=== PATIENT | female | born 1980 | race Caucasian/White ===

== ENCOUNTER 2017-09-20 12:02 | Day surgery (SDC) | payer BC ==
--- NOTE | 2017-09-20 11:22 | GHP ---
[f rep st] PREOP HISTORY AND PHYSICAL DATE OF ADMISSION: 09/20/2017 HISTORY OF PRESENT ILLNESS: The patient is a 37-year-old G1, P0, who was found on ultrasound on 08/23 8 to have a missed AB at 7 weeks 1 day with no cardiac activity. By sure last menstrual period the was to be 9+ weeks. The patient was counseled as to the 2-week lag in growth with no cardiac activity and that the patient had a missed AB. The patient confirmed those ultrasound findings again on 09/20 with another ultrasound showing a missed AB with no cardiac activity. The gestational sac is enlarged with debris. The patient has not had any bleeding or pain. She stil l has some breast tenderness and has mild nausea. The patient now wants to proceed with definitive m anagement with a D and C. the patient is counseled as to risks of the D and C as far as trauma to th e uterus or scarring to the endometrial lining. She is advised that these risks are low, but could c ause problems with subsequent pregnancies. The patient has an impending trip in a week and does not want to await a spontaneous AB. Risks and benefits of the surgery were discussed and the consent for m will be signed preoperatively. PAST MEDICAL HISTORY: Negative. PAST SURGICAL HISTORY: Odontectomy as a teenager. ALLERGIES: No known drug allergies. CURRENT MEDICATIONS: vitamins. SOCIAL HISTORY: The patient is a nonsmoker. No alcohol or drug use. No edible marijuana use. 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 No history of STDs. She had a histo ry of OCP use until approximately 2 years ago. Upon discontinuation of her pill, she did not have me nstrual cycles for approximately a year. When they resumed they were a regular 28-day pattern with n ormal flow. PHYSICAL EXAM: GENERAL: The patient is a well-developed and well-nourished white female in no physi xi distress. VITAL SIGNS: Normal and the patient is afebrile. See nursing documentation for full details. LUNGS: Clear to auscultation bilaterally. CARDIOVASCULAR: Regular rate and rhythm. ABDO MEN: Soft and nontender. PELVIC: Not performed. IMAGING: Current ultrasound shows the above-noted findings as well as a right ovarian corpus luteum cyst. ASSESSMENT: Missed at 9 weeks 4 days, measuring 7 weeks 1 day. No cardiac activity. PLAN: We will proceed with a D and C today. The patient will get preoperative antibiotics and have on sequential compression devices for DVT prevention. The patient will have a CBC drawn and also con firm her blood type and antibody screen. The patient recalls being A-negative as well as her who was previously checked and is A-negative as well. The patient was given the option for Anora ch romosome testing, but does not feel she will want to do that. This will be confirmed before the proc jasson. /[id number]/MODL
[2017-09-20] MEDS ORDERED: LR 1,000 ML IV ONE (12:11)
[2017-09-20] MEDS ORDERED: DOXYCYCLINE HYCLATE 100 MG CAP/TAB PO ONE (12:11)
[2017-09-20 12:54] LABS: PLATELET COUNT 293 10^3/uL (150-400)
[2017-09-20] MEDS ORDERED: PROPOFOL/EMULSION 500 MG/50 ML BOTTLE IV ONE (13:04)
[2017-09-20] MEDS ORDERED: fentaNYL 100 MCG/2 ML INJ ONE (13:05)
[2017-09-20] MEDS ORDERED: DEXAMETHASONE 4 MG/ML VIAL ONE ×2 (13:54)
[2017-09-20] MEDS ORDERED: LIDOCAINE 2% 5 ML SDV ONE (13:54)
[2017-09-20] MEDS ORDERED: KETOROLAC 30 MG/1 ML SDV ONE (13:54)
[2017-09-20] MEDS ORDERED: ONDANSETRON 4 MG/2 ML VIAL ONE (13:54)
[2017-09-20] MEDS ORDERED: epHEDrine SULFATE 10 MG/ML SYR IVP PRN (14:39)
[2017-09-20] MEDS ORDERED: HYDROCODONE/APAP 5/325 TAB PO PRN (14:39)
[2017-09-20] MEDS ORDERED: ONDANSETRON 4 MG/2 ML VIAL IVP PRN (14:39)
[2017-09-20] MEDS ORDERED: fentaNYL 100 MCG/2 ML INJ IVP PRN (14:39)
[2017-09-20] MEDS ORDERED: NALOXONE HCL 0.4 MG/ML INJ IVP PRN (14:39)
--- NOTE | 2017-09-20 14:43 | POSTANESTH ---
Post Anesthetic Evaluation Cardiovascular Status: Normal, Stable, Similar to Pre-Op Cond Respiratory Status: Normal, Stable, Similar to Pre-op Cond. Level of Consciousness/Mental Status: Can Participate in Eval, Alert and Oriented Pain Control: Adequate, Prn Tx Ordered Nausea/Vomiting Control: Adequate, Prn Tx Ordered Complications Possibly Related to Anesthesia: None Noted
--- NOTE | 2017-09-20 14:43 | PDANEPAE ---
ANE History of Present Illness Missed Ab. ANE Past Medical History - Cardiovascular History Hx Hypertension: No Hx Arrhythmias: No Hx Chest Pain: No Hx Coronary Artery / Peripheral Vascular Disease: No Hx CHF / Valvular Disease: No Hx Palpitations: No - Pulmonary History Hx COPD: No Hx Asthma/Reactive Airway Disease: No Hx Recent Upper Respiratory Infection: No Hx Oxygen in Use at Home: No Hx Sleep Apnea: No Sleep Apnea Screening Result - Last Documented: Negative - Endocrine History Hx Diabetes: No Hypothyroid: No Hyperthyroid: No Obesity: no - Surgical History Prior Surgeries: [place] teeth. ANE Review of Systems Review of Systems: - Exercise capacity Exercise capacity: >=4 METS ANE Patient History - Allergies Allergies/Adverse Reactions: No Known Allergies Allergy (Unverified 03/09/16 06:58) - NPO status NPO Since - Liquids (Date): 09/19/17 NPO Since - Solids (Date): 09/19/17 - Anes Hx Anes Hx: no prior problems - Smoking Hx Smoking Status: Never smoked Marijuana use: No - Alcohol Use Alcohol Use: Rarely - Family Anes Hx Family Anes Hx: neg - N/A ANE Labs/Vital Signs - Labs Result Diagrams: 09/20/17 12:40 - Vital Signs Blood Pressure: 109/53 Heart Rate: 57 Respiratory Rate: 18 O2 Sat (%): 97 Height: 160.02 cm Weight: 54.431 kg ANE Physical Exam - Airway Neck exam: FROM Mallampati Score: Class 1 Mouth exam: normal dental/mouth exam - Pulmonary Pulmonary: no respiratory distress - Cardiovascular Cardiovascular: regular rate and rhythym - ASA Status ASA Status: I ANE Anesthesia Plan Anesthesia Plan: GA with mask
--- NOTE | 2017-09-20 14:45 | POSTOPPROG ---
Post Op Note Date of Operation: 09/20/17 Surgeon: Yue Eller Anesthesiologist: Isma Saleh MD Pre-op Diagnosis: MAB 7 wks Post-op Diagnosis: same Indication: U/S on 09/18 showed MAB 7w1d at 9w4d...no bld, sure LMP Procedure: Dilation and Currettage Findings: dilated easily to 8.5 Krystina, #8 suction tip used, empty ut on u/s after Inf/Abcess present in the surg proc area at time of surgery?: No Depth: Organ Space EBL: 50-100 Complications: none Specimen(s): POCs
[2017-09-20 16:25] VITALS: RESP 14; TEMP 98.1; O2SAT 99
[2017-09-20 16:37] VITALS: BP 105/56; PULSE 53
--- NOTE | 2017-09-20 17:19 | GOP ---
[f rep st] OPERATIVE REPORT DATE OF OPERATION: 09/20/2017 SURGEON: Yue Eller MD ANESTHESIA: Mask general anesthetic. ANESTHESIOLOGIST: Isma Saleh MD. PREOPERATIVE DIAGNOSIS: Missed at 7 weeks. POSTOPERATIVE DIAGNOSIS: Missed at 7 weeks. PROCEDURE PERFORMED: Dilatation and curettage. FINDINGS: INDICATIONS: Patient is a 37-year-old G1, P0 with an ultrasound on 09/18 revealing a missed AB at 7 weeks and 1 day with no cardiac activity. There was a normal gestational sac with a lot of hannah ris. The patient was advised as to the options, and decided to proceed with a D and C for definitive management as she is leaving town for a week next week. Patient was advised as to the risks and beau efits, and the consent form signed. Patient was given the option of Anora genetic testing, and hayes es this. The patient knows her blood type is A negative and her 's blood type as well is A ne gative, so she will not need RhoGAM. Patient has no other contributory medical or surgical issues. DESCRIPTION OF PROCEDURE: The patient was taken to the operating room, where following satisfactory general mask anesthesia, the patient was placed in dorsal lithotomy position appropriate for vaginal surgery. The patient had received doxycycline prior to the surgery, and had SCDs on her lower extrem ities for DVT prophylaxis. The patient had urinated prior to coming to the operating room. The bladimir ent's perineum and vagina were prepped, and the patient draped in usual sterile manner for vaginal pr ocedures. A sterile speculum was placed within the vagina. The anterior cervical lip was grasped wi th a single-tooth tenaculum and gentle traction applied. The cervix was slowly dilated up to #8.5 He gar dilator. A #8 tip was used on the suction machine, and abundant tissue was obtained with the suc tion curettage. Multiple passes were made. An ultrasound was performed after the suctioning, and th ere was still felt to be debris in the uterus. Sharp curettage was performed, and there were palpabl y membranes or tissue still noted. Additional passes with the suction revealed additional tissue. F ollowing this, the sharp curettage was performed, and there was good uterine cry throughout the uteri ne cavity. One final pass did not reveal any additional tissue. Minimal bleeding. The single-tooth tenaculum was removed from the cervix, and there was no additional bleeding. Ultrasound then showed the empty uterus. There were no noted complications to surgery. The patient was cleaned off and ta fadumo out of position, and then awoken and taken to the recovery room in stable condition. Estimated b lood loss 50 cc. There were no signs of infection at the time of surgery. The pathology was the POC s that will additionally be sent for Anora testing. SERVICE: Gynecology. /[id number]/MODL
== END 2017-09-20 15:45 | disposition home or self-care (01) ==
LOC: FOBOP 12:02
PROVIDERS: ATTEND Obstetrics & Gynecology
PROC: 10D17ZZ Extraction of Products of Conception, Retained, Via Natural or Artificial Opening (ICD-10-PCS; principal; 2017-09-20)
DX: O02.1 Missed abortion (principal); N83.201 Unspecified ovarian cyst, right side
CPT/HCPCS: J1100; J1885; J2405; J2704; J3010

== ENCOUNTER → 2018-05-20 | Outpatient (CLI) | payer BC | LOC: FIMAGING 11:35 | PROVIDERS: ATTEND Obstetrics & Gynecology | DX: O09.521 Supervision of elderly multigravida, first trimester (principal); D56.0 Alpha thalassemia; Z3A.12 12 weeks gestation of pregnancy ==

== ENCOUNTER → 2018-07-03 | Outpatient (CLI) | payer BC | LOC: FIMAGING 10:35 | PROVIDERS: ATTEND Obstetrics & Gynecology | DX: O09.522 Supervision of elderly multigravida, second trimester (principal); Z87.59 Personal history of other complications of pregnancy, childbirth and the puerperium; Z3A.19 19 weeks gestation of pregnancy ==

== ENCOUNTER 2018-11-27 06:00 | Inpatient (IN) | payer BC ==
[2018-11-27] MEDS ORDERED: OLIVE OIL 118 ML BTL MISC PRN (06:27)
[2018-11-27] MEDS ORDERED: MISOPROSTOL 200 MCG TAB PR PRN (06:27)
[2018-11-27] MEDS ORDERED: OXYTOCIN/RINGERS LACTATE 1,000 ML IV PRN (06:27)
[2018-11-27] MEDS ORDERED: LIDOCAINE 1% 300 MG/30 ML SDV SC PRN (06:27)
[2018-11-27] MEDS ORDERED: EPSOM SALT 454 GM TP PRN (06:27)
[2018-11-27] MEDS ORDERED: IBUPROFEN 600 MG TAB PO PRN (06:27)
[2018-11-27 06:47] LABS: PLATELET COUNT 232 10^3/uL (150-400)
[2018-11-27] MEDS ORDERED: OLIVE OIL 118 ML BTL MISC ONE (06:48)
[2018-11-27] MEDS ORDERED: AMMONIA AROMATIC 1 EACH AMP IH ONE (06:48)
[2018-11-27] MEDS ORDERED: TERBUTALINE SULFATE 1 MG/ML VIAL ONE (06:48)
[2018-11-27] MEDS ORDERED: OXYTOCIN 10 UNIT/ML VIAL ONE (06:48)
[2018-11-27] MEDS ORDERED: MISOPROSTOL 200 MCG TAB ONE (06:48)
[2018-11-27] MEDS ORDERED: LIDOCAINE 1% 300 MG/30 ML SDV ONE (06:48)
[2018-11-27] MEDS ORDERED: PENICILLIN G POTASSIUM 5,000,000 UNIT in D5W 150 ML IV ONE (07:26)
--- NOTE | 2018-11-27 07:45 | PDGENHP ---
History and Physical - Chief Complaint Elective IOL - History of Present Illness 38 at 40w1d by LMP c/w 6 wk US - here for elective IOL. Good FM, no VB, no LOF. NO DICKINSON, no vis changes, no epigastric or RUQ pain. Uncomplicated course. Had Juares bulb with 30 ml placed in office late yesterday afternoon by Dr. Aparicio. Was 1 cm dilated. labs: A neg Rub Imm GBS POS Innatal neg Std panel : alphal thal carrier, Andriy- neg All other standard labs within normal limits. Ob hx: 09/2017 MAB, D&C, Trisomy 22, 7 weeks History Information - Allergies/Home Medication List Allergies/Adverse Reactions: No Known Allergies Allergy (Unverified 03/09/16 06:58) I have personally reviewed and updated: family history, medical history, social history, surgical history Past Medical History: IBS - has had endoscopy and colonoscopy - Surgical History Additional surgical history: 09/2017 D&C. 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 [employer] Review of Systems Review of Systems: ROS: 10pt was reviewed & negative except for what was stated in HPI & below Physical Exam Physical Exam: FHR 130, reactive, Cat 1, mod variability, + accels, no decels toco - q3-7 37.2 52 120/66 16 ] Constitutional: no apparent distress, appears nourished Eyes: PERRL, anicteric sclera, EOMI Ears, Nose, Mouth, Throat: moist mucous membranes, hearing normal, ears appear normal Cardiovascular: regular rate and rhythym Respiratory: no respiratory distress, no rales or rhonchi, clear to auscultation Gastrointestinal: normoactive bowel sounds, other (term, gravid, fetus cephalic on US - currently back on maternal left and appears ROT) Genitourinary: no bladder fullness Skin: warm, normal color Musculoskeletal: full muscle strength, no muscle tenderness Neurologic: AAOx3 Psychiatric: interacting appropriately, not anxious Lymph, Heme, Immunologic: no cervical LAD Lab Data & Imaging Review 11/27/18 06:30 WBC 10.17 10^3/uL (3.80-9.50) H 11/27/18 06:30 RBC 4.78 10^6/uL (4.18-5.33) 11/27/18 06:30 Hgb 13.4 g/dL (12.6-16.3) 11/27/18 06:30 Hct 41.4 % (38.0-47.0) 11/27/18 06:30 MCV 86.6 fL (81.5-99.8) 11/27/18 06:30 MCH 28.0 pg (27.9-34.1) 11/27/18 06:30 MCHC 32.4 g/dL (32.4-36.7) 11/27/18 06:30 RDW 14.1 % (11.5-15.2) 11/27/18 06:30 Plt Count 232 10^3/uL (150-400) 11/27/18 06:30 MPV 11.1 fL (8.7-11.7) 11/27/18 06:30 Neut % (Auto) 70.8 % (39.3-74.2) 11/27/18 06:30 Lymph % (Auto) 20.7 % (15.0-45.0) 11/27/18 06:30 [place] % (Auto) 5.6 % (4.5-13.0) 11/27/18 06:30 Eos % (Auto) 1.8 % (0.6-7.6) 11/27/18 06:30 Baso % (Auto) 0.3 % (0.3-1.7) 11/27/18 06:30 Nucleat RBC Rel Count 0.0 % (0.0-0.2) 11/27/18 06:30 Absolute Neuts (auto) 7.20 10^3/uL (1.70-6.50) H 11/27/18 06:30 Absolute Lymphs (auto) 2.11 10^3/uL (1.00-3.00) 11/27/18 06:30 Absolute Monos (auto) 0.57 10^3/uL (0.30-0.80) 11/27/18 06:30 Absolute Eos (auto) 0.18 10^3/uL (0.03-0.40) 11/27/18 06:30 Absolute Basos (auto) 0.03 10^3/uL (0.02-0.10) 11/27/18 06:30 Absolute Nucleated RBC 0.00 10^3/uL (0-0.01) 11/27/18 06:30 Immature Gran % 0.8 % (0.0-1.1) 11/27/18 06:30 Immature Gran # 0.08 10^3/uL (0.00-0.10) 11/27/18 06:30 Patient ABO/Rh A NEGATIVE 11/27/18 06:30 Antibody Screen NEGATIVE 11/27/18 06:30 Assessment & Plan Assessment: 36 at 40w1d here for elective IOL. GBS pos. Discussed elective nature, no current medical indication. Could stop at any time prior to ROM. Will proceed with pitocin induction, and reassess / remove Juares bulb this afternoon if has not come out by then. [EFW [id number] by Janeen, cephalic presentation confirmed with US] Will start PCN for GBS pos. Corinne Rahman MD, FACOG
[2018-11-27] MEDS ORDERED: LR 500 ML IV PRN (07:58)
[2018-11-27] MEDS ORDERED: OXYTOCIN/RINGERS LACTATE 500 ML IV SCH (08:00)
[2018-11-27] MEDS: LR 1,000 ML IV PRN ×2 (08:06→16:13)
[2018-11-27] MEDS: PENICILLIN G POTASSIUM 2,500,000 UNIT in D5W 150 ML IV SCH ×3 (12:28→19:57)
[2018-11-27] MEDS ORDERED: fentaNYL 2MCG/ML/BUP 0.1% RTU 100 ML BAG EP ONE (12:46)
[2018-11-27] MEDS ORDERED: fentaNYL 100 MCG/2 ML INJ ONE ×2 (12:51→20:46)
[2018-11-27] MEDS ORDERED: ONDANSETRON 4 MG/2 ML VIAL IVP PRN ×2 (13:29→21:31)
[2018-11-27] MEDS ORDERED: PHENYLEPHRINE HCL 100 MCG/ML SYR IVP PRN ×2 (13:29→21:31)
[2018-11-27] MEDS ORDERED: METOCLOPRAMIDE 10 MG/2 ML VIAL IVP PRN ×2 (13:29→21:31)
--- NOTE | 2018-11-27 13:29 | PDANEPAE ---
ANE Past Medical History - Cardiovascular History Hx Hypertension: No Hx Arrhythmias: No Hx Chest Pain: No Hx Coronary Artery / Peripheral Vascular Disease: No Hx CHF / Valvular Disease: No Hx Palpitations: No - Pulmonary History Hx COPD: No Hx Asthma/Reactive Airway Disease: No Hx Recent Upper Respiratory Infection: No Hx Oxygen in Use at Home: No Hx Sleep Apnea: No - Endocrine History Hx Diabetes: No - Surgical History Prior Surgeries: [place] teeth. ANE Review of Systems Review of Systems: ANE Patient History - Allergies Allergies/Adverse Reactions: No Known Allergies Allergy (Unverified 03/09/16 06:58) - Smoking Hx Smoking Status: Never smoked - Alcohol Use Alcohol Use: None ANE Labs/Vital Signs - Labs Result Diagrams: 11/27/18 06:30 - Vital Signs Height: 161.29 cm Weight: 66.224 kg ANE Physical Exam - Airway Neck exam: FROM Mallampati Score: Class 2 Mouth exam: normal dental/mouth exam - Pulmonary Pulmonary: no respiratory distress - Cardiovascular Cardiovascular: regular rate and rhythym - ASA Status ASA Status: II ANE Anesthesia Plan Anesthesia Plan: epidural
[2018-11-27] MEDS ORDERED: LR 500 ML IV SCH (13:30)
[2018-11-27] MEDS ORDERED: fentaNYL 2MCG/ML/BUP 0.1% RTU 100 ML EP SCH (13:30)
--- NOTE | 2018-11-27 14:37 | OBPROG ---
Labor Progress Note Assessment/Plan: Assessment:36 at 40w1d, undergoing elective IOL. Epidural in place and effective. Has made progress, but vertex still ballotable. Will work on position changes. Pitocin resumed after 3 min decel. Corinne Rahman MD, FACOG 11/27/18 14:31 Subjective/Intrapartum Course: 11/27/18 14:32 Pt quite comfortable now after epidural, can't even feel contractions. Objective: 11/27/18 06:30 Patient ABO/Rh A NEGATIVE 11/27/18 06:30 37.2 66 106/87 95% Had FHR deceleration to 70s x 3 min, after multiple contractions in a row. Juares bulb came out around 1400. SVE just now 4/80/ballotable with BBOW - SVE Dilation (cm): 4 Effacement (%): 80 Station: -3 Membranes: Intact Amniotic Fluid Color: Clear - FHR Assessment Ramirez FHR (bpm): 130 FHR Pattern Variability: Moderate FHR Category: 1 Oxytocin Orders Assessment - Pre-Induction/Augmentation Assessment Gestational Age: 40 week(s) and 1 day(s) ICD10 Worksheet Patient Problems: Problems Problem Status Onset Encounter for elective induction of labor Acute Missed ab Acute S/P dilatation and curettage Acute - ICD10 Problem Qualifiers (1) Encounter for elective induction of labor
--- NOTE | 2018-11-27 19:21 | OBPROG ---
Labor Progress Note Assessment/Plan: Assessment:38 at 40w1d, undergoing elective IOL. Epidural in place and effective. Has made progress, but vertex still ballotable. Will work on position changes. Pitocin resumed after 3 min decel. Corinne Rahman MD, FACOG 11/27/18 14:31 A/P: 38 at 40w1d undergoing elective IOL. Now s/p AROM -clear, followed by 3-4 min bradycardic episode - resolved with position changes/ pit off and O2. Will allow recovery time and then restart pitocin prn. GBS pos - has received 3 doses of PCN - dwight continue. Corinne Rahman MD, FACOG 11/27/18 19:17 Subjective/Intrapartum Course: 11/27/18 14:32 Pt quite comfortable now after epidural, can't even feel contractions. 11/27/18 19:23 Completely comfortable with epidural. Objective: 11/27/18 06:30 Patient ABO/Rh A NEGATIVE 11/27/18 06:30 - SVE Dilation (cm): 4 Effacement (%): 80 Station: -2 Membranes: AROM (clear), Intact Amniotic Fluid Color: Clear - Contraction Pattern Assessment Current Contraction Pattern: Irregular - FHR Assessment Ramirez FHR (bpm): 140 (see note) FHR Pattern Variability: Moderate FHR Category: 2 - Procedures Non-surgical Procedures: Amniotomy Oxytocin Orders Assessment - Pre-Induction/Augmentation Assessment Gestational Age: 40 week(s) and 1 day(s) ICD10 Worksheet Patient Problems: Problems Problem Status Onset Encounter for elective induction of labor Acute Missed ab Acute S/P dilatation and curettage Acute - ICD10 Problem Qualifiers (1) Encounter for elective induction of labor
--- NOTE | 2018-11-27 20:16 | OBPROG ---
Labor Progress Note Assessment/Plan: Assessment:38 at 40w1d, undergoing elective IOL. Epidural in place and effective. Has made progress, but vertex still ballotable. Will work on position changes. Pitocin resumed after 3 min decel. Corinne Rahman MD, FACOG 11/27/18 14:31 A/P: 38 at 40w1d undergoing elective IOL. Now s/p AROM -clear, followed by 3-4 min bradycardic episode - resolved with position changes/ pit off and O2. Will allow recovery time and then restart pitocin prn. GBS pos - has received 3 doses of PCN - dwight continue. Corinne Rahman MD, FACOG 11/27/18 19:17 38 at 40w1d, undergoing elective IOL, now with 3 bradycardic episode , remote from delivery, and no progress since AROM. Discussed - recommend proceeding with primary C/S - pt and agreeable. Will obtain written informed consent, anesthesia notified. Corinne Rahman MD, FACOG 11/27/18 20:12 Subjective/Intrapartum Course: 11/27/18 14:32 Pt quite comfortable now after epidural, can't even feel contractions. 11/27/18 19:23 Completely comfortable with epidural. Objective: 11/27/18 06:30 Patient ABO/Rh A NEGATIVE 11/27/18 06:30 - SVE Dilation (cm): 4 Effacement (%): 80 Station: -2 Membranes: AROM (clear), Intact Amniotic Fluid Color: Clear - Contraction Pattern Assessment Current Contraction Pattern: Irregular - FHR Assessment Ramirez FHR (bpm): 135 ( bradycardic episode again, to 60s x 2-3 min) - Procedures Non-surgical Procedures: Amniotomy Oxytocin Orders Assessment - Pre-Induction/Augmentation Assessment Gestational Age: 40 week(s) and 1 day(s) ICD10 Worksheet Patient Problems: Problems Problem Status Onset Encounter for elective induction of labor Acute Missed ab Acute S/P dilatation and curettage Acute - ICD10 Problem Qualifiers (1) Encounter for elective induction of labor
[2018-11-27] MEDS ORDERED: ceFAZolin 2 GM/DEXTROSE 100 ML IV ONE (20:25)
[2018-11-27] MEDS ORDERED: LR 500 ML IV ONE (20:25)
[2018-11-27] MEDS ORDERED: AZITHROMYCIN IV 500 MG in NS 250 ML IV ONE (20:26)
[2018-11-27] MEDS ORDERED: LR 1,000 ML IV SCH (20:30)
[2018-11-27] MEDS ORDERED: morphINE PF 5 MG/10 ML INJ ONE (20:46)
[2018-11-27] MEDS ORDERED: CITRIC ACID/SODIUM CITRATE 30 ML UDCUP ONE (20:51)
[2018-11-27] MEDS ORDERED: RANITIDINE 50 MG/2 ML VIAL ONE (21:12)
--- NOTE | 2018-11-27 21:26 | PREANESOB ---
Obstetric Pre-Anesthesia Info - General Info Proposed Procedure: : 2 Para: 0 GARRICK: 11/26/18 Gestational Age: 40 week(s) and 1 day(s) - Info Status: Full Term Monitors: External FHR Pattern: Reassuring - Labor Status Cervical Dilation per last OB SVE: 4 Station per last OB SVE: -2 Amniotic Fluid Color: Clear Pitocin: In Use Magnesium Sulfate in Use: No Section History: Primary Indications for Current Section: Arrest of Descent Labor Epidural: Yes Anesthesia Allergies/Adverse Reactions: Allergy/AdvReac Type Severity Reaction Status Date / Time No Known Allergies Allergy Unverified 03/09/16 06:58 Visit Medications: Generic Name Dose Route Start Last Admin Trade Name Freq PRN Reason Stop Dose Admin Lactated Ringer's 1,000 mls @ 0 mls/hr 11/27/18 06:27 11/27/18 16:13 Lr IV 11/28/18 06:26 1,000 mls PRN PRN Administration SEE PROTOCOL CONDITIONS Protocol Per Protocol Oxytocin/Lactated Ringer's 1,000 mls @ 125 mls/hr 11/27/18 06:27 Pitocin 20 Units/Lr (Premix) IV PRN PRN Post bleeding Penicillin G Potassium 2,500, 155 mls @ 155 mls/hr 11/27/18 11:26 11/27/18 19 :57 000 unit/ Dextrose IV 12/27/18 11:25 155 mls Q4H MARGOT Administration Protocol Lactated Ringer's 500 mls @ 500 mls/hr 11/27/18 07:58 Lr IV 11/28/18 07:58 PRN PRN Maternal Hypotension Oxytocin/Lactated Ringer's 500 mls @ 0 mls/hr 11/27/18 08:00 11/27/18 08:06 Pitocin 30 Units/Lr (Premix) IV 05/26/19 07:59 500 mls CONT MARGOT Administration Protocol Per Protocol Fentanyl/Bupivacaine HCl 100 mls @ 0 mls/hr 11/27/18 13:30 Fentanyl/Bupivacaine/Ns 2 Mcg/Ml 0.1% (Premix EP 12/07/18 13:29 CONT MARGOT Protocol As Directed Lactated Ringer's 500 mls @ 0 mls/hr 11/27/18 13:30 Lr IV 05/26/19 13:29 CONT MARGOT As Directed Azithromycin 500 mg/ Sodium 255 mls @ 255 mls/hr 11/27/18 20:26 11/27/18 20: 44 Chloride IV 11/27/18 21:25 255 mls ONCE ONE Administration Protocol Lactated Ringer's 1,000 mls @ 125 mls/hr 11/27/18 20:30 Lr IV 11/28/18 20:29 CONT MARGOT Ibuprofen 600 mg 11/27/18 06:27 Motrin PO ONCE PRN post , pain Lidocaine HCl 300 mg 11/27/18 06:27 Lidocaine Hcl 1% SC 05/26/19 06:26 ONCE PRN episiotomy Magnesium Sulfate 454 gm 11/27/18 06:27 Epsom Salt TP 05/26/19 06:26 Q1H PRN perineal discomfort Metoclopramide HCl 20 mg 11/27/18 13:29 Reglan Injection IVP 05/26/19 13:28 Q6HRS PRN Nausea/Vomiting, Can't Take PO Misoprostol 800 - 1,000 mcg 11/27/18 06:27 Cytotec MT ONCE PRN Vaginal Atony/Bleeding [place] Oil 118 ml 11/27/18 06:27 Sweet Oil MISC 05/26/19 06:26 ONCE PRN perineal massage Ondansetron HCl 4 mg 11/27/18 13:29 Zofran IVP 11/28/18 13:28 Q4HRS PRN Nausea/Vomiting, Can't Take PO Phenylephrine HCl 100 mcg 11/27/18 13:29 Neosynephrine IVP 05/26/19 13:28 .Q2M PRN Hypotension Discontinued Medications Generic Name Dose Route Start Last Admin Trade Name Freq PRN Reason Stop Dose Admin Ammonia (Aromatic Spirit) Confirm 11/27/18 06:48 Ammonia Aromatic Administered 11/27/18 06:49 Dose 1 each IH .STK-MED ONE Citric Acid/Sodium Citrate Confirm 11/27/18 20:51 Bicitra Administered 11/27/18 20:52 Dose 30 ml .ROUTE .STK-MED ONE Fentanyl Confirm 11/27/18 12:51 Sublimaze Administered 11/27/18 12:52 Dose 100 mcg .ROUTE .STK-MED ONE Fentanyl Confirm 11/27/18 20:46 Sublimaze Administered 11/27/18 20:47 Dose 100 mcg .ROUTE .STK-MED ONE Fentanyl/Bupivacaine HCl Confirm 11/27/18 12:46 Fentanyl/Bupivacaine/Ns 2 Mcg/Ml 0.1% (Premix Administered 11/27/18 12:47 Dose 100 ml EP .STK-MED ONE Penicillin G Potassium 5,000, 160 mls @ 160 mls/hr 11/27/18 07:26 11/27/18 08 :06 000 unit/ Dextrose IV 11/27/18 08:25 160 mls ONCE ONE Administration Protocol Cefazolin Sodium/Dextrose 100 mls @ 200 mls/hr 11/27/18 20:25 11/27/18 20:44 Ancef IV 11/27/18 20:54 100 mls ONCALL ONE Administration Protocol Lactated Ringer's 500 mls @ 0 mls/hr 11/27/18 20:25 Lr IV 11/27/18 20:26 ONCE ONE As Directed Lidocaine HCl Confirm 11/27/18 06:48 Lidocaine Hcl 1% Administered 11/27/18 06:49 Dose 300 mg .ROUTE .STK-MED ONE Misoprostol Confirm 11/27/18 06:48 Cytotec Administered 11/27/18 06:49 Dose 1,000 mcg .ROUTE .STK-MED ONE Morphine Sulfate Confirm 11/27/18 20:46 Morphine Pf 5 Mg/10 Ml Administered 11/27/18 20:47 Dose 5 mg .ROUTE .STK-MED ONE [place] Oil Confirm 11/27/18 06:48 Sweet Oil Administered 11/27/18 06:49 Dose 118 ml MISC .STK-MED ONE Oxytocin Confirm 11/27/18 06:48 Pitocin Administered 11/27/18 06:49 Dose 40 unit .ROUTE .STK-MED ONE Ranitidine HCl Confirm 11/27/18 21:12 Zantac Administered 11/27/18 21:13 Dose 50 mg .ROUTE .STK-MED ONE Terbutaline Sulfate Confirm 11/27/18 06:48 Brethine Administered 11/27/18 06:49 Dose 1 mg .ROUTE .STK-MED ONE - Anesthesia History Response to Local Anesthetics: Not Applicable Anesthesia & Operative History: No Prior Problems Family Anesthesia History: Not Applicable - Vital Signs Latest Vital Signs (Nursing): Temp Pulse Resp BP Pulse Ox 37.7 C 61 16 133/72 H 100 11/27/18 20:13 11/27/18 20:13 11/27/18 20:13 11/27/18 20:13 11/27/18 20:13 Height/Weight (Nursing): Height 161.29 cm Weight 66.224 kg - Focused Exam Neck exam: FROM Mallampati Score: Class 1 Mouth exam: normal dental/mouth exam Pulmonary: no respiratory distress Cardiovascular: regular rate and rhythym Labs: 11/27/18 06:30 Patient ABO/Rh A NEGATIVE 11/27/18 06:30 - Plan Consent Signed and on Chart: Yes Patient/Guardian Understands and Agrees to Plan: Yes Urgent/Emergent Case: Aleida villeda completed preop but documented later for safe timely pt care
--- NOTE | 2018-11-27 21:28 | POSTANESTH ---
Post Anesthetic Evaluation Cardiovascular Status: Normal, Stable Respiratory Status: Normal, Stable Level of Consciousness/Mental Status: Can Participate in Eval, Alert and Oriented Pain Control: Adequate, Prn Tx Ordered Nausea/Vomiting Control: Adequate, Prn Tx Ordered Complications Possibly Related to Anesthesia: None Noted
[2018-11-27] MEDS ORDERED: HYDROmorphONE/DILAUDID 1 MG/ML INJ IVP PRN (21:31)
[2018-11-27] MEDS ORDERED: MEPERIDINE 25 MG/0.5 ML AMP IVP PRN (21:31)
[2018-11-27] MEDS ORDERED: fentaNYL 100 MCG/2 ML INJ IVP PRN (21:31)
[2018-11-27] MEDS ORDERED: OXYCODONE/APAP 5/325 TAB PO PRN (21:31)
[2018-11-27] MEDS ORDERED: NALOXONE HCL 0.4 MG/ML INJ IVP PRN ×2 (21:31)
[2018-11-27] MEDS ORDERED: HYDROCODONE/APAP 5/325 TAB PO PRN (21:31)
[2018-11-27] MEDS ORDERED: LABETALOL HCL 5 MG/ML 20 ML MDV IVP PRN (21:31)
[2018-11-27] MEDS ORDERED: OXYTOCIN 100 UNITS/10 ML VIAL ONE (21:48)
[2018-11-27] MEDS ORDERED: ONDANSETRON 4 MG/2 ML VIAL ONE (21:48)
[2018-11-27] MEDS ORDERED: PHENYLEPHRINE HCL 100 MCG/ML SYR ONE (21:48)
--- NOTE | 2018-11-27 22:23 | POSTOPPROG ---
Post Op Note Date of Operation: 11/27/18 Surgeon: Corinne Rahman Production Solderer: Hawa Aparicio Anesthesiologist: Pierre Haji Anesthesia: Epidural Pre-op Diagnosis: intolerance of labor Post-op Diagnosis: same Indication: intolerance of labor remote from delivery Procedure: primary low transverse section Findings: normal appearing uterus, tubes and ovaries, LOP Inf/Abcess present in the surg proc area at time of surgery?: No EBL: 500-1000 Total fluids administered: 700 Complications: none
[2018-11-27] MEDS ORDERED: BISACODYL 10 MG SUPP PR PRN (22:26)
[2018-11-27] MEDS ORDERED: LACTULOSE 20 GM/30 ML UDCUP PO PRN (22:26)
[2018-11-27] MEDS ORDERED: oxyCODONE IR 5 MG TAB PO PRN (22:26)
[2018-11-27] MEDS ORDERED: POLYETHYLENE GLYCOL 3350 17 GM PKT PO PRN (22:26)
[2018-11-27] MEDS ORDERED: OXYTOCIN/RINGERS LACTATE 1,000 ML IV SCH (22:30)
[2018-11-27] MEDS ORDERED: KETOROLAC 30 MG/1 ML SDV IVP SCH (22:30)
--- NOTE | 2018-11-27 22:38 | OBDEL ---
Info Type: Primary Presentation at Delivery: Vertex L&D Analgesia/Anesthesia Type: Epidural, Nitrous GBS+: Yes Antibiotic Used for + GBS: Ampicillin (PCN not amp) Intrapartum Medications: Discontinued Medications Generic Name Dose Route Start Last Admin Trade Name Freq PRN Reason Stop Dose Admin Lactated Ringer's 1,000 mls @ 0 mls/hr 11/27/18 06:27 11/27/18 16:13 Lr IV 11/28/18 06:26 1,000 mls PRN PRN Administration SEE PROTOCOL CONDITIONS Protocol Per Protocol Penicillin G Potassium 5,000, 160 mls @ 160 mls/hr 11/27/18 07:26 11/27/18 08 :06 000 unit/ Dextrose IV 11/27/18 08:25 160 mls ONCE ONE Administration Protocol Penicillin G Potassium 2,500, 155 mls @ 155 mls/hr 11/27/18 11:26 11/27/18 19 :57 000 unit/ Dextrose IV 12/27/18 11:25 155 mls Q4H MARGOT Administration Protocol Oxytocin/Lactated Ringer's 500 mls @ 0 mls/hr 11/27/18 08:00 11/27/18 08:06 Pitocin 30 Units/Lr (Premix) IV 05/26/19 07:59 500 mls CONT MARGOT Administration Protocol Per Protocol Azithromycin 500 mg/ Sodium 255 mls @ 255 mls/hr 11/27/18 20:26 11/27/18 20: 44 Chloride IV 11/27/18 21:25 255 mls ONCE ONE Administration Protocol Cefazolin Sodium/Dextrose 100 mls @ 200 mls/hr 11/27/18 20:25 11/27/18 20:44 Ancef IV 11/27/18 20:54 100 mls ONCALL ONE Administration Protocol - Care Provider Tree Specialist/MANAGER BASKETBALL[facility] Intrapartum: 11/27/18 14:32 Pt quite comfortable now after epidural, can't even feel contractions. 11/27/18 19:23 Completely comfortable with epidural. Indications for Delivery: Elective Vaginal Delivery - Labor and Delivery Amniotic Fluid Color: Clear Non-surgical Procedures: Amniotomy Operative Report - Delivery Pre-op Diagnoses: intolerance of labor remote from delivery Post-op Diagnoses: same History of Prior Section: No Nulliparous Prior to Delivery: No Indications for Current Section: Arrest of Descent, Non-reas. Status Procedure: Unscheduled Surgeon: Corinne Rahman [employer] Network Technician: Hawa Aparicio Anesthesiologist: Pierre Haji Complications: Nucal Cord Findings: Normal appearing uterus, tubes and ovaries. LOP presentation of fetus. IV Fluid (ml): 700 EBL: 800 Bruno Data GARRICK: 11/26/18 Gestational Age: 40 week(s) and 1 day(s) Ramirez Delivery Date: 11/27/18 Delivery Time: 21:23 Sex of : Male Bruno Weight (gm): 3560 kg Score (1 Min): 8 Score (5 Min): 9 ICD10 Worksheet Patient Problems: Problems Problem Status Onset Arrest of dilation, delivered, current hospitalization Acute delivery, delivered, current hospitalization Acute Encounter for elective induction of labor Acute intolerance to labor, delivered, current hospitalization Acute Missed ab Acute S/P dilatation and curettage Acute - ICD10 Problem Qualifiers (1) Encounter for elective induction of labor (2) intolerance to labor, delivered, current hospitalization (3) Arrest of dilation, delivered, current hospitalization (4) delivery, delivered, current hospitalization
--- NOTE | 2018-11-27 23:21 | GOP ---
[f rep st] OPERATIVE REPORT DATE OF OPERATION: 11/27/2018 SURGEON: Corinne Rahman MD FRONT DESK ADMIN: Hawa Aparicio D.O. ANESTHESIA: Epidural. ANESTHESIOLOGIST: Pierre Haji MD. PREOPERATIVE DIAGNOSIS: intolerance of labor and arrest of dilation. POSTOPERATIVE DIAGNOSIS: intolerance of labor and arrest of dilation. PROCEDURE PERFORMED: Primary low transverse . FINDINGS: Normal-appearing uterus, tubes, and ovaries. LOP presentation of the fetus. ESTIMATED BLOOD LOSS: 800 mL. INDICATIONS: 38-year-old 2, para 0 female, undergoing elective induction of labor at 40 weeks and 1 day. Arrest of dilation at 4 cm was noted even after artificial rupture of membranes. There were also 3 episodes of bradycardia noted, so the decision was made to proceed with a section as intolerance of labor remote from delivery was noted. DESCRIPTION OF PROCEDURE: Written informed consent was obtained from the patient. She was then taken back to the operating room, placed in the dorsal supine position. A Juares catheter was already in place. Her epidural was dosed appropriately. She was given 2 gm of Ancef and 500mg of Zithromax prior to the incision. A WHO time-out was performed. Her abdomen was sterilely prepared and draped in a standard fashion. Incision was made and taken down sharply to the fascia. The fascia was incised in the midline and this was extended laterally in a sharp fashion. The superior aspect of the incision was elevated and dissected away sharply and bluntly from the underlying rectus muscles. This was repeated on the inferior aspect of the incision. The rectus muscles were in the midline, and the peritoneum was entered sharply after being elevated. A bladder flap was created sharply in the standard fashion. Hysterotomy was made with a release of clear fluid. Hysterotomy was extended laterally in a blunt fashion. The vertex was able to be grasped and elevated out of the pelvis and through the hysterotomy. Bulb suctioning was performed. With the assistance of fundal pressure, the infant was delivered. Cord clamping was delayed for 1 minute. During this time, the was dried and stimulated. The cord was then clamped and cut, and the infant was handed to the waiting nurse practitioner. With the assistance of fundal massage, the placenta delivered spontaneously. The uterus was then exteriorized and cleared of all clots and debris x2. The hysterotomy was repaired in a running locked fashion with 0 Monocryl. A 2nd imbricating layer was placed. Excellent hemostasis was noted. The gutters were cleared of all clots and debris. The uterus was replaced into the abdomen. The fascia was then closed with 0 PDS in a running fashion. Anai's fascia was then closed with 3-0 Monocryl in a running fashion. The skin was then closed in a running subcuticular fashion with 4-0 Monocryl. It was then covered with Steri- Strips and a dressing. Fundal massage was used to remove all remaining clots from lower uterine segment and the vagina. Sponge, lap, and needle counts were correct x2. Patient was taken to the recovery room in stable condition. IV FLUIDS: 700 mL. URINE OUTPUT: 100 mL. Delivery of a male infant at 2123 weighing 3560 g with Apgars of 8 at one minute and 9 at five minutes. COMPLICATIONS: None. /[id number]/MODL MTDD
[2018-11-28] MEDS ORDERED: ACETAMINOPHEN 325 MG TAB PO SCH (01:26)
[2018-11-28] MEDS: KETOROLAC 30 MG/1 ML SDV IVP SCH ×3 (05:58→18:43)
--- NOTE | 2018-11-28 09:05 | OBPP ---
Progress Note Assessment/Plan: Assessment: 38 yo now , today POD1 s/p PLTCS for indications. - Doing great - routine advancements: buchanan out, IVF off, up and ambulate, dressing off and shower at 24 hrs postop. - Hct 33 from 41, started on iron supps today - tolerated them fine during . - Rh neg - screen and RhoGam PRN. - Rubella immune. JM Subjective/ Course: Delilah is doing great this AM - pain well controlled. Was nauseous and vomiting early this AM, but better now with Reglan and Zofran. Baby doing great, BF going well. Bandage hasn't come off yet, buchanan still in place. Objective: 11/28/18 06:12 Patient ABO/Rh A NEGATIVE 11/27/18 06:30 Temp Pulse Resp BP Pulse Ox 36.3 C 53 L 16 104/65 94 11/28/18 06:15 11/28/18 06:15 11/28/18 08:00 11/28/18 06:15 11/28/18 08:00
[2018-11-28] MEDS: ACETAMINOPHEN 325 MG TAB PO SCH ×3 (10:26→18:43)
--- NOTE | 2018-11-28 11:17 | POSTANESTH ---
Post Anesthetic Evaluation Cardiovascular Status: Normal, Stable Respiratory Status: Normal, Stable Level of Consciousness/Mental Status: Can Participate in Eval Pain Control: Adequate, Prn Tx Ordered Nausea/Vomiting Control: Adequate, Prn Tx Ordered Complications Possibly Related to Anesthesia: None Noted (Pt doing well s/p PINEDA. No headache, no back pain, regained full motor and sensory in lower extremities.)
[2018-11-28] MEDS: SENNOSIDES/DOCUSATE SODIUM TAB PO SCH (15:08)
[2018-11-28] MEDS: FERRO-SEQUELS 65 MG TAB.ER PO SCH (17:24)
[2018-11-29] MEDS: IBUPROFEN 600 MG TAB PO SCH ×3 (00:23→13:23)
[2018-11-29] MEDS: FERRO-SEQUELS 65 MG TAB.ER PO SCH ×2 (00:23→09:37)
[2018-11-29] MEDS: ACETAMINOPHEN 325 MG TAB PO SCH ×3 (00:24→13:23)
[2018-11-29] MEDS: SENNOSIDES/DOCUSATE SODIUM TAB PO SCH ×2 (06:34→09:38)
[2018-11-29 09:06] VITALS: BP 103/61
--- NOTE | 2018-11-29 10:35 | OBPP ---
Progress Note Assessment/Plan: Assessment: P1 POD# 2 S/P pltcs for intolerance of labor remote from delivery rh - baby rh negative anemia - on iron breast feeding wants to go home Plan: 11/29/18 10:34 11/29/18 10:36 11/29/18 10:37 Subjective/ Course: Delilah is doing great this AM - pain well controlled. Was nauseous and vomiting early this AM, but better now with Reglan and Zofran. Baby doing great, BF going well. Bandage hasn't come off yet, buchanan still in place. 11/29/18 10:37 patient is doing great. pain is well controlled. normal lochia. ambulating. passing gas. taking iron. denies headache and changes in vision. voiding without difficulty. wants to go home. will be discharged if baby is discharged to home. follow up instructions and post operative and post instructions reviewed. Objective: 11/28/18 06:12 Patient ABO/Rh A NEGATIVE 11/27/18 06:30 Temp Pulse Resp BP Pulse Ox 36.7 C 61 16 103/61 96 11/29/18 09:05 11/29/18 09:05 11/29/18 09:05 11/29/18 09:05 11/29/18 09:05 Physical Exam - Physical Exam Neck: non-tender, full range of motion, supple Respiratory: chest non-tender, lungs clear, normal breath sounds Cardiac/Chest: normal peripheral pulses, regular rate, rhythm Abdomen: normal bowel sounds, non-tender, other (fundus firm and non tender) Extremities: normal range of motion, non-tender, normal inspection, normal capillary refill Skin: normal color, warm/dry, other (incision clean dry and intact) Neuro/Psych: no motor/sensory deficits, alert, normal mood/affect, oriented x 3
--- NOTE | 2018-11-29 10:47 | OBGCSDC ---
General Delivery Information - General Info : 2 Para: 1 Abortions: 1 Type: Primary L&D Analgesia/Anesthesia Type: Epidural, Nitrous Admission Date: 11/27/18 Labs: Patient ABO/Rh A NEGATIVE 11/27/18 06:30 Hct 33.7 % (38.0-47.0) L 11/28/18 06:12 - Hospital Course Intrapartum: 11/27/18 14:32 Pt quite comfortable now after epidural, can't even feel contractions. 11/27/18 19:23 Completely comfortable with epidural. : Delilah is doing great this AM - pain well controlled. Was nauseous and vomiting early this AM, but better now with Reglan and Zofran. Baby doing great, BF going well. Bandage hasn't come off yet, buchanan still in place. 11/29/18 10:37 patient is doing great. pain is well controlled. normal lochia. ambulating. passing gas. taking iron. denies headache and changes in vision. voiding without difficulty. wants to go home. will be discharged if baby is discharged to home. follow up instructions and post operative and post instructions reviewed. Vaginal - Diagnosis Amniotic Fluid Color: Clear - Procedures Non-surgical Procedures: Amniotomy - Delivery Providers Surgeon: Corinne Rahman Process Development Associate: Hawa Aparicio Anesthesiologist: Pierre Haji - Delivery Indications for Current Section: Arrest of Descent, Non-reas. Status Non-surgical Procedures: Amniotomy Surgical Procedures: Unscheduled Intra-op Complications: Nucal Cord EBL: 800 Data GARRICK: 11/26/18 Gestational Age: 40 week(s) and 3 day(s) Ramirez Delivery Date: 11/27/18 Delivery Time: 21:23 Sex of : Male Weight (gm): 3560 kg Score (1 Min): 8 Score (5 Min): 9 Discharge Information - Discharge Information Prescriptions: oxyCODONE IR [Oxycodone Ir (*)] 5 - 10 mg PO Q4 PRN #5 tab PRN Reason: Pain, Severe Able To Take Po Condition: Good
== END 2018-11-29 16:39 | disposition home or self-care (01) | DRG 788 ==
LOC: FLD 06:09 → FOB 11-28 00:30
PROVIDERS: ADMIT Hospitalist; ATTEND Hospitalist
PROC: 10D00Z1 Extraction of Products of Conception, Low, Open Approach (ICD-10-PCS; principal; 2018-11-27)
PROC: 10907ZC Drainage of Amniotic Fluid, Therapeutic from Products of Conception, Via Natural or Artificial Opening (ICD-10-PCS; principal; 2018-11-27)
PROC: 3E033VJ Introduction of Other Hormone into Peripheral Vein, Percutaneous Approach (ICD-10-PCS; principal; 2018-11-27)
DX: O76 Abnormality in fetal heart rate and rhythm complicating labor and delivery (principal); O32.4XX0 Maternal care for high head at term, not applicable or unspecified; O69.81X0 Labor and delivery complicated by cord around neck, without compression, not applicable or unspecified; O99.820 Streptococcus B carrier state complicating pregnancy; O26.893 Other specified pregnancy related conditions, third trimester; Z67.91 Unspecified blood type, Rh negative; Z3A.40 40 weeks gestation of pregnancy; Z37.0 Single live birth
CPT/HCPCS: J0456; J0690; J1885; J2274; J2370; J2405; J2540; J2590; J2765; J2780; J3010; J3105

== ENCOUNTER → 2018-12-03 | Outpatient (CLI) | payer BC | LOC: FLACT 12:20 | PROVIDERS: ATTEND Obstetrics & Gynecology | DX: Z39.1 Encounter for care and examination of lactating mother (principal) | CPT/HCPCS: G0463 ==